=== PATIENT | female | born 1955 | race Two or more races ===

== ENCOUNTER 2018-08-10 16:36 | Emergency (ER) | payer OTHER ==
[~2018-08-10] VITALS: Ht 160 cm; Wt 89.8 kg
[2018-08-10] MEDS ORDERED: METOPROLOL TAR100 M1 ORAL (16:45)
[2018-08-10 17:18] VITALS: BP 143/71
--- NOTE | 2018-08-10 17:18 | Emergency Room Report ---
History of Present Illness General Chief Complaint: Chest Pain Source: Patient Present Illness HPI Patient presents emergency department today complaining of a headache. Patient states that she has had a history of strokes in the past. She was trying to her hair and bleached her hair and then suddenly subsequently it. She has had pain because of doing this procedure last couple of days. The pain is described as squeezing sensation like around the head. She denies any photophobia. Denies any fever neck pain neck stiffness nausea vomiting. No other complaints are noted. Patient states that she was just a little concerned and want to make sure she was not having another stroke. Patient also complains of very mild chest discomfort. But she denies any definite chest pain or shortness of breath any leg pain leg swelling. Patient states that she does not want to be admitted to the hospital she has to go to work tomorrow wants to be discharged. No other complaints were noted. Symptoms noted to be moderate. No other modifying factors. No other associated signs and symptoms. No other complaints were noted. Allergies: Coded Allergies: CEFTRIAXONE (Verified Allergy, Unknown, 08/10/18) DIATRIZOATE MEGLUMINE (Verified Allergy, Unknown, 08/10/18) DIATRIZOATE SODIUM (Verified Allergy, Unknown, 08/10/18) NSAIDS (NON-STEROIDAL ANTI-INFLAMMA (Verified Allergy, Unknown, 08/10/18) PENICILLINS (Verified Allergy, Unknown, 08/10/18) SULFA (SULFONAMIDE ANTIBIOTICS) (Verified Allergy, Unknown, 08/10/18) Patient History Past Medical History: HTN, other - Renal insufficiency Past Surgical History: none Pertinent Family History: none Social History: Denies: smoking, alcohol use, drug use Reviewed Nursing Documentation: PMH: Agreed; PSxH: Agreed Nursing Documentation-PMH Hx Hypertension: Yes Hx Dialysis: No - CKD Review of Systems All Other Systems: negative except mentioned in HPI Physical Exam Vital Signs Date Time Temp Pulse Resp B/P (MAP) Pulse Ox O2 Delivery O2 Flow Rate FiO2 08/10/18 16:42 98.2 69 18 143/71 (95) 99 Room Air Sp02 EP Interpretation: reviewed, normal General Appearance: normal inspection, well appearing, no apparent distress, alert Head: atraumatic Eyes: bilateral eye normal inspection ENT: normal ENT inspection, hearing grossly normal, normal voice Neck: normal inspection, full range of motion, supple, no bony tend Respiratory: normal inspection, lungs clear, normal breath sounds, no respiratory distress, no retraction, no wheezing Cardiovascular #1: regular rate, rhythm, no edema Gastrointestinal: normal inspection, normal bowel sounds, non tender, soft, no guarding, no hernia Genitourinary: no CVA tenderness Musculoskeletal: normal inspection, back normal, normal range of motion Neurologic: normal inspection, alert, responsive, speech normal Psychiatric: normal inspection, judgement/insight normal, mood/affect normal Skin: normal inspection, normal color, no rash Medical Decision Making Diagnostic Impression: Primary Impression: Chest pain Additional Impression: Headache ER Course Patient presents emergency department today complaining of a headache. Differential considerations include acute intracranial injury, CVA, subarachnoid hemorrhage, tension headache just name a few. In addition patient has some mild chest pain differential considerations include acute coronary syndrome. Given the severity of the patient's presentation I felt this is a highly complex patient. This patient required extensive workup. Patient's laboratory work-up was negative head CT was normal patient was given pain medications with good relief in symptoms. Given patient negative work-up. Feel the patient's headaches likely secondary to the hair treatment that she received. I recommended Motrin or [place] as needed. Patient states that Motrin gives her tummy ache therefore patient was given prescription for [place]. Patient is also advised to follow-up outpatient for chest pain her cardiac work- up is negative symptoms are fairly atypical sounding has been more than 2 days therefore I felt that it be unlikely that she has acute coronary syndrome in light of negative work-up. Patient is advised to follow up with primary doctor in 2-3 days and return the emergency room for any worsening symptoms and as needed. Labs Test 08/10/18 17:05 White Blood Count 7.2 K/UL (4.8-10.8) Red Blood Count 5.35 M/UL (4.20-5.40) Hemoglobin 13.8 G/DL (12.0-16.0) Hematocrit 42.2 % (37.0-47.0) Mean Corpuscular Volume 79 FL (80-99) Mean Corpuscular Hemoglobin 25.8 PG (27.0-31.0) Mean Corpuscular Hemoglobin Concent 32.7 G/DL (32.0-36.0) Red Cell Distribution Width 16.1 % (11.6-14.8) Platelet Count 180 K/UL (150-450) Mean Platelet Volume 7.9 FL (6.5-10.1) Neutrophils (%) (Auto) 60.6 % (45.0-75.0) Lymphocytes (%) (Auto) 31.2 % (20.0-45.0) Monocytes (%) (Auto) 6.2 % (1.0-10.0) Eosinophils (%) (Auto) 0.7 % (0.0-3.0) Basophils (%) (Auto) 1.4 % (0.0-2.0) Sodium Level 142 MMOL/L (136-145) Potassium Level 4.0 MMOL/L (3.5-5.1) Chloride Level 105 MMOL/L (98-107) Carbon Dioxide Level 27 MMOL/L (21-32) Anion Gap 10 mmol/L (5-15) Blood Urea Nitrogen 15 mg/dL (7-18) Creatinine 1.0 MG/DL (0.55-1.30) Estimat Glomerular Filtration Rate 56.5 mL/min (>60) Glucose Level 110 MG/DL (74-106) Calcium Level 9.3 MG/DL (8.5-10.1) Total Bilirubin 0.2 MG/DL (0.2-1.0) Aspartate Amino Transf (AST/SGOT) 20 U/L (15-37) Alanine Aminotransferase (ALT/SGPT) 29 U/L (12-78) Alkaline Phosphatase 157 U/L (46-116) Total Creatine Kinase 66 U/L (26-308) Creatine Kinase MB 0.8 NG/ML (0.0-3.6) Creatine Kinase MB Relative Index 1.2 Troponin I 0.000 ng/mL (0.000-0.056) Total Protein 8.0 G/DL (6.4-8.2) Albumin 4.0 G/DL (3.4-5.0) Globulin 4.0 g/dL Albumin/Globulin Ratio 1.0 (1.0-2.7) EKG Diagnostic Results Rate: normal Rhythm: NSR ST Segments: no acute changes Rhythm Strip Diag. Results EP Interpretation: yes Rate: 64 Rhythm: NSR, no PVC's, no ectopy Chest X-Ray Diagnostic Results Chest X-Ray Diagnostic Results : Chest X-Ray Ordered: Yes # of Views/Limited/Complete: 1 View Indication: Chest Pain Interpretation: no consolidation, no effusion, no pneumothorax, no acute cardiopulmonary disease Impression: No acute disease Electronically Signed by: Electronically signed by Robel Mariano MD CT/MRI/US Diagnostic Results CT/MRI/US Diagnostic Results : Imaging Test Ordered: Head CT: Negative per radiology Last Vital Signs Date Time Temp Pulse Resp B/P (MAP) Pulse Ox O2 Delivery O2 Flow Rate FiO2 08/10/18 16:42 98.2 69 18 143/71 (95) 99 Room Air Status: improved Disposition: HOME, SELF-CARE Condition: Stable Scripts Hydrocodone Bit/Acetaminophen 5-325* (NORCO 5-325*) 1 Each Tablet 1 TAB ORAL Q6H PRN for For Pain, #20 TAB 0 Refills Prov: Robel Mariano MD 08/10/18 Robel Mariano MD Aug 10, 2018 17:18
[2018-08-10 17:35] LABS: BASOPHILS % (AUTO) 1.4 % (0.0-2.0); EOSINOPHILS % (AUTO) 0.7 % (0.0-3.0); HEMATOCRIT 42.2 % (37.0-47.0); HEMOGLOBIN 13.8 G/DL (12.0-16.0); LYMPHOCYTES % (AUTO) 31.2 % (20.0-45.0); MEAN CORPUSCULAR VOLUME 79 FL (80-99); MONOCYTES % (AUTO) 6.2 % (1.0-10.0); NEUTROPHILS % (AUTO) 60.6 % (45.0-75.0); PLATELET COUNT 180 K/UL (150-450); RED BLOOD COUNT 5.35 M/UL (4.20-5.40); RED CELL DISTRIBUTION WIDTH 16.1 % (11.6-14.8); WHITE BLOOD COUNT 7.2 K/UL (4.8-10.8)
[2018-08-10 17:46] LABS: ANION GAP 10 mmol/L (5-15); BLOOD UREA NITROGEN 15 mg/dL (7-18); CALCIUM 9.3 MG/DL (8.5-10.1); CARBON DIOXIDE 27 MMOL/L (21-32); CHLORIDE 105 MMOL/L (98-107); SODIUM 142 MMOL/L (136-145)
--- NOTE | 2018-08-10 17:47 | Diagnostic Imaging Report ---
Indications: Headache Technique: Spiral acquisitions obtained through the brain. Angled axial and coronal 5 x 5 mm slices were reconstructed. Total dose length product 1404.24 mGycm. CTDI vol(s) 70.38 mGy. Dose reduction achieved using automated exposure control Comparison: None. Findings: There is age-related enlargement of the extra-axial CSF spaces, predominantly in the frontal and parietal regions. Normal-sized ventricles. Normal goss-white differentiation. No acute intracranial hemorrhage or edema. No mass effect nor midline shift. Intact calvarium. Visualized orbits and sinuses are unremarkable. Impression: Mild age-related cortical volume loss Negative for acute intracranial bleed or mass effect. The CT scanner at [facility] is accredited by the [employer] and the scans are performed using protocols designed to limit radiation exposure to as low as reasonably achievable to attain images of sufficient resolution adequate for diagnostic evaluation.
[2018-08-10 17:59] LABS: ALANINE AMINOTRANSFERASE 29 U/L (12-78); ALKALINE PHOSPHATASE 157 U/L (46-116); ASPARTATE AMINO TRANSFERASE 20 U/L (15-37); BILIRUBIN,TOTAL 0.2 MG/DL (0.2-1.0); CKMB 0.8 NG/ML (0.0-3.6); CREATINE KINASE 66 U/L (26-308)
[2018-08-10] MEDS ORDERED: Morphine Sulfate 2mg/ml Inj(IV/IM USE ONLY) IVP ONE (18:00)
[2018-08-10] MEDS ORDERED: NORCO 5-325 TA1 EACH ORAL (18:16)
[2018-08-10 18:20] VITALS: BP 143/66
[2018-08-10 18:21] VITALS: BP 143/66
--- NOTE | 2018-08-10 18:32 | Diagnostic Imaging Report ---
Indication: Cough Technique: One view of the chest Comparison: none Findings: Lungs and pleural spaces are clear. Heart size is normal Impression: No acute process
--- NOTE | 2018-08-12 19:18 | Cardiology Report ---
APPROVED REPORT EKG Measurement Heart [id number] Normal sinus rhythm Normal ECG
== END 2018-08-10 18:21 | disposition home or self-care (01) ==
LOC: EMR 18:00
DX: R51 Headache (principal); R07.9 Chest pain, unspecified; Z86.73 Personal history of transient ischemic attack (TIA), and cerebral infarction without residual deficits; Z88.0 Allergy status to penicillin; Z88.2 Allergy status to sulfonamides; Z88.8 Allergy status to other drugs, medicaments and biological substances; I10 Essential (primary) hypertension
CPT/HCPCS: 36415; 70450; 71045; 80053; 82550; 82553; 84484; 85025; 93005; 96374; 99284; J2270